=== PATIENT | female | born 1975 | race Caucasian/White ===

== ENCOUNTER → 2018-01-16 | Outpatient (CLI) | payer BC ==
--- NOTE | 2018-01-16 08:32 | MM ---
Reason for exam: clinical finding. History: Taking hormonal contraceptives beginning at age 18. Physical Findings: Nurse did not find any significant physical abnormalities on exam. MG 3D Diag Mammo W/Cad BELA Bilateral CC and MLO view(s) were taken. The breast tissue is heterogeneously dense. This may lower the sensitivity of mammography. No suspicious calcifications are seen. There is no discrete abnormality including area of concern. These results were verbally communicated with the patient and result sheet given to the patient on 01/16/18. ASSESSMENT: Incomplete: need additional imaging evaluation, BI-RAD 0 RECOMMENDATION: Ultrasound of the left breast. (palpable) Manage patient on a clinical basis.
--- NOTE | 2018-01-16 08:33 | USB ---
Reason for exam: additional evaluation requested from abnormal screening. History: Taking hormonal contraceptives beginning at age 18. US Breast Axilla LT Left limited breast ultrasound including focal area of concern, retroareolar and axilla demonstrates no cystic or solid lesion seen. These results were verbally communicated with the patient and result sheet given to the patient on 01/16/18. ASSESSMENT: Benign, BI-RAD 2 RECOMMENDATION: Routine screening mammogram of both breasts in 1 year. Manage patient on a clinical basis.
== END | disposition home or self-care (01) ==
LOC: RADMAMWWP 06:47
PROVIDERS: ATTEND Internal Medicine
DX: R92.8 Other abnormal and inconclusive findings on diagnostic imaging of breast (principal)
CPT/HCPCS: 77062; 77066

== ENCOUNTER → 2020-08-13 | Outpatient (CLI) | payer BC ==
--- NOTE | 2020-08-13 14:49 | XR ---
EXAMINATION TYPE: XR cervical spine w flex/ext DATE OF EXAM: 08/13/2020 TECHNIQUE: Frontal, lateral, oblique, swimmers, and open mouth view of the cervical spine are obtaine d. Additional flexion and extension views are obtained. HISTORY: M47.812 COMPARISON: None FINDINGS: The cervical spine is visualized in its entirety from C1 thru the top of T1 level, it is s atisfactory in alignment without evidence of acute fracture or dislocation. Flexion, extension and n eutral views demonstrate normal alignment. The pre-vertebral soft tissue appears within normal limits . The C1-C2 articulation is within normal limits on the open mouth view. The oblique images are wit hin normal limits. IMPRESSION: No acute fracture or dislocation is seen in the cervical spine.
== END | disposition home or self-care (01) ==
LOC: RADXRMAIN 14:19
PROVIDERS: ATTEND Internal Medicine
DX: M47.812 Spondylosis without myelopathy or radiculopathy, cervical region (principal)
CPT/HCPCS: 72052

== ENCOUNTER → 2021-08-25 | Outpatient (CLI) | payer BC ==
--- NOTE | 2021-08-25 10:46 | NM ---
EXAMINATION TYPE: NM stress cardiolite complete DATE OF EXAM: 08/25/2021 COMPARISON: NONE HISTORY: Abnormal EKG. Family history of heart attack. TECHNIQUE: After the intravenous administration of 9.5 mCi Tc 99m Sestamibi - Rest images obtained 4 5 minutes post injection. The patient exercised using a TERRELL protocol and 1 minute prior to peak e xercise was injected with 24.7 mCi Tc 99m Sestamibi - Stress images obtained 15 minutes post injectio n. FINDINGS: Targeted heart rate was achieved during performance of the study. Review of stress and rest SPECT cm ges demonstrates no distinct perfusion abnormality. Gated analysis shows normal wall motion with an estimated left ventricular ejection fraction of 66 %. IMPRESSION: No scintigraphic evidence for reversible ischemia
--- NOTE | 2021-08-25 11:48 | CA ---
Exercise Stress Test Report Name: Carola Luciano Exam Date: 08/25/2021 09:53 Exam Location: [facility] Stress Ht (in): 66 Wt (lb): 145 BSA: 1.74 Ordering Phys: Paula Moses MD Referring Phys: Paula Moses MD Technologist: Nain Hand Age: 45 Gender: F : 1975 Procedure CPT: Indications: I25.9 Ischemic heart disease ICD-10 Codes: Patient History: Medications: NONE Meds past 24 hrs: Pretest Chest Pain: STRESS TEST Bandar Protocol Exercise Duration (min:sec): 09:[address] Depressions (mm): Angina Score: Ortez Score: Resting HR (bpm): 100 Peak HR (bpm): 163 Resting BP (mmHg): 109 / 70 Peak BP (mmHg): 151 / 75 MPHR: 177 Target HR: 150 % MPHR: 92 METS: 11.2 Total Dose: Peak Dose: Atropine: Double Product: 90439 BP Response: Stress Termination: TARGET HR REACHED/MAX EXERTION Stress Symptoms: NO SYMPTOMS Stress Summary: The patient's target heart rate was achieved , The hemodynamic response to exercise was normal ECG ANALYSIS Resting ECG: Sinus mechanism with normal intervals and RSR prime with nonspecific ST-T wave changes Stress ECG: No acute ST segment changes CONCLUSIONS 1. Average exercise tolerance 2. Nondiagnostic a left cardiac stress testing secondary to baseline EKG abnormality 3. If clinically indicated an imaging stress test will be helpful Dr. Bernabe Suarez MD (Electronically Signed) Final Date: 25 August 2021 11:47
== END | disposition home or self-care (01) ==
LOC: RADNMMAIN 07:51
PROVIDERS: ATTEND Internal Medicine
DX: R94.31 Abnormal electrocardiogram [ECG] [EKG] (principal)
CPT/HCPCS: 93017; 78452; A9500

== ENCOUNTER → 2022-08-16 | Outpatient (CLI) | payer BC ==
--- NOTE | 2022-08-17 07:30 | MM ---
Reason for Exam: Screening (asymptomatic). Last mammogram was performed 4 year(s) and 7 month(s) ago. Patient History: Menarche at age 15. First Full-Term at age 23. Premenopausal. Patient has history of breast feeding. Currently using Hormonal Contraceptives, starting at age 18. Risk Values: Rach 5 year model risk: 0.7%. NCI Lifetime model risk: 8.7%. Prior Study Comparison: 01/16/2018 Bilateral Diagnostic Mammogram, [facility]. Tissue Density: The breast tissue is extremely dense which could obscure a lesion on mammography. Findings: Analyzed By CAD. There is no suspicious group of microcalcifications within either breast. No new suspicious mass within the right breast. There is increased density asymmetry in the retroareolar region only on the MLO view in the left breast. Overall Assessment: Incomplete: need additional imaging evaluation, BI-RAD 0 Management: Diagnostic Mammogram of the left breast. A clinical breast exam by your physician is recommended on an annual basis and results should be correlated with mammographic findings. Note on Rach scores and lifetime risk: 1. A Rach score greater than 3% is considered moderate risk. If this is the case, consider specialist referral to assess eligibility for a risk reducing agent. If overall lifetime risk for the development of breast cancer is 20% or higher, the patient may qualify for future screening with alternating mammogram and breast MRI. Electronically signed and approved by: Taz Umana D.O.
== END | disposition home or self-care (01) ==
LOC: RADMAMWWP 08:52
PROVIDERS: ATTEND Obstetrics & Gynecology
DX: Z12.31 Encounter for screening mammogram for malignant neoplasm of breast (principal)
CPT/HCPCS: 77063; 77067

== ENCOUNTER → 2022-08-18 | Outpatient (CLI) | payer BC ==
--- NOTE | 2022-08-18 07:40 | MM ---
Reason for Exam: Additional evaluation requested from abnormal screening. Last screening mammogram was performed less than 1 month ago. Patient History: Menarche at age 15. First Full-Term at age 23. Premenopausal. Patient has history of breast feeding. Currently using Hormonal Contraceptives, starting at age 18. Risk Values: Rach 5 year model risk: 0.7%. NCI Lifetime model risk: 8.7%. Prior Study Comparison: 01/16/2018 Bilateral Diagnostic Mammogram, [facility]. 08/16/2022 Bilateral MG 3D screening mammo w/cad, [facility]. Tissue Density: Left: There are scattered fibroglandular densities. Findings: Analyzed By CAD. Asymmetry compresses out on spot compression imaging. No new suspicious masses, calcifications or distortions. Overall Assessment: Benign, BI-RAD 2 Management: Screening Mammogram of both breasts in 1 year. Results were given to the patient verbally at the time of exam. Patient should continue monthly self-breast exams. A clinical breast exam by your physician is recommended on an annual basis. This exam should not preclude additional follow-up of suspicious palpable abnormalities. Note on Rach scores and lifetime risk: 1. A Rach score greater than 3% is considered moderate risk. If this is the case, consider specialist referral to assess eligibility for a risk reducing agent. 2. If overall lifetime risk for the development of breast cancer is 20% or higher, the patient may qualify for future screening with alternating mammogram and breast MRI. Electronically signed and approved by: Ar Arriola DO
== END | disposition home or self-care (01) ==
LOC: RADMAMWWP 07:00
PROVIDERS: ATTEND Obstetrics & Gynecology
DX: R92.8 Other abnormal and inconclusive findings on diagnostic imaging of breast (principal)
CPT/HCPCS: 77061; 77065